=== PATIENT | female | born 1960 | race African-American/Black ===

== ENCOUNTER 2017-11-19 07:35 | Day surgery (SDC) | payer OTHER ==
[2017-11-18 10:26] VITALS: BMI 34.3
[2017-11-19] MEDS ORDERED: BUPIVACAINE HCL/PF 0.5% (5MG/ML) 10 ML VIAL ONE (10:41)
[2017-11-19] MEDS ORDERED: INDOCYANINE GREEN 25 MG/10 ML VIAL IVPUSH ONE (10:41)
--- NOTE | 2017-11-19 11:05 | HP ---
Satellite [facility] [place] - Chief Complaint Chief Complaint: Recurrent epigastric pain. + Gallstones History Source: Patient Limitations to Obtaining History: No Limitations - Past Medical History Allergies/Adverse Reactions: Allergies Allergy/AdvReac Type Severity Reaction Status Date / Time No Known Drug Allergies Allergy Verified 11/19/17 08:37 - Current Medications Current Medications: Home Medications Medication Instructions Recorded Acetaminophen [Tylenol] 650 mg PO PRN 11/18/17 Cholecalciferol (Vitamin D3) 1,000 unit PO WEEKLY 11/18/17 [Vitamin D3] Olmesartan/Hydrochlorothiazide 1 each PO DAILY 11/18/17 [Benicar Hct 40-25 mg Tablet] Docusate Sodium [Colace -] 100 mg PO TID #90 capsule 11/19/17 Oxycodone HCl/Acetaminophen 1 - 2 tab PO Q6H #28 tab MDD 4 11/19/17 [Percocet 5-325 mg Tablet] Satellite Physical Exam - Physical Examination Vital Signs: Vital Signs Period Temp Pulse Resp BP Sys/Whitt Pulse Ox Last 24 Hr 98.5 F 56 16 111/67 99 General Appearance: Well Nourished Lung: Clear to auscultation Heart: Regular rate & rhythm Abdomen: Soft, No tenderness Neurological: Alert, Oriented Satellite Impression/Plan - Impression/Plan Impression: Biliary colic Operative Procedure: Robotic cholecystectomy possible open Date to be Performed: 11/19/17
[2017-11-19] MEDS ORDERED: MIDAZOLAM HCL 2 MG/2 ML SINGLE DOSE VIAL ONE (11:42)
[2017-11-19] MEDS ORDERED: ROCURONIUM BROMIDE 50 MG/5 ML VIAL ONE (11:51)
[2017-11-19] MEDS ORDERED: PROPOFOL 20 ML ONE (11:51)
[2017-11-19] MEDS ORDERED: ceFAZolin SODIUM 1 GM VIAL IVPB ONE (11:59)
[2017-11-19] MEDS ORDERED: DEXAMETHASONE SOD PHOSPHATE 4 MG/1 ML VIAL ONE (12:05)
[2017-11-19] MEDS ORDERED: LIDOCAINE HCL/PF 2% SDV 5ML VIAL ONE (12:05)
[2017-11-19] MEDS ORDERED: LIDOCAINE HCL 2% JELLY (5 ML/TUBE) ONE (12:05)
[2017-11-19] MEDS ORDERED: ceFAZolin SODIUM 1 GM VIAL ONE (12:05)
[2017-11-19] MEDS ORDERED: GLYCOPYRROLATE 0.2 MG/1 ML VIAL ONE (12:05)
[2017-11-19] MEDS ORDERED: BUPIVACAINE HCL/PF 0.5% (5MG/ML) 10 ML VIAL IJ ONE (13:09)
[2017-11-19] MEDS ORDERED: NEOSTIGMINE METHYLSULFATE 0.5 MG/ML - 10 ML MDV ONE (13:10)
--- NOTE | 2017-11-19 13:19 | OP ---
Operative Note - Note: Operative Date: 11/19/17 Pre-Operative Diagnosis: Biliary colic Operation: Robotic cholecystectectomy Post-Operative Diagnosis: Same as Pre-op Surgeon: Obinna James Vest Backer: Erin Rhodes Anesthesia: General Specimens Removed: Gallbladder Estimated Blood Loss (mls): 10 Operative Report Dictated: Yes
[2017-11-19] MEDS ORDERED: ONDANSETRON 4 MG/2 ML VIAL IVPUSH PRN ×2 (13:20→13:46)
[2017-11-19] MEDS ORDERED: ACETAMINOPHEN 325 MG TABLET (FP) PO PRN (13:20)
[2017-11-19] MEDS ORDERED: D5-1/2NS+20 MEQ KCL - 20 MEQ/1,000 ML INFUS.BAG IV SCH (13:30)
[2017-11-19] MEDS ORDERED: ACETAMINOPHEN 325 MG TABLET (FP) PO SCH (13:30)
[2017-11-19] MEDS ORDERED: LACTATED RINGERS SOLUTION 1,000 ML IV SCH (14:00)
[2017-11-19 15:12] VITALS: TEMP 98.8
[2017-11-19 18:45] VITALS: BP 120/66; PULSE 68
--- NOTE | 2017-11-20 07:44 | SURG ---
Surgery Grain Trader Note Grain Trader: Erin Rhodes PA-C Date of Service: 11/20/17 Diagnosis: Biliary colic Procedure: Robotic cholecystectectomy I was present for the entirety of the operative procedure. For further detail, please refer to operative report. Visit type - Case Type Case Type: Scheduled Admission - Emergency Emergency Visit: No - New patient This patient is new to me today: Yes Date on this admission: 11/20/17
[2017-11-20] MEDS ORDERED: VALSARTAN 160 MG TABLET (UD) PO SCH (10:00)
[2017-11-20] MEDS ORDERED: HYDROCHLOROTHIAZIDE 25 MG TABLET (FP) PO SCH (10:00)
[2017-11-20] MEDS ORDERED: PATIENT'S OWN MEDICATION (NON-FORMULARY) (Olmesartan/Hydrochlorothiazide [Benicar Hct 40-2 PO SCH (10:00)
--- NOTE | 2017-11-22 09:19 | PATH ---
Surgical Pathology Report Patient Name: SHORTY MCKOY [facility]. Rec. #: [id number] /Age/Gender: 1960 (Age: 57) / F Account: [id number] Location: U SURGICAL Taken: 11/20/2017 Received: 11/20/2017 Reported: 11/22/2017 Physicians: Obinna James M.D. Specimen(s) Received GALLBLADDER Clinical History Cholelithiasis Final Diagnosis GALLBLADDER, CHOLECYSTECTOMY: CHRONIC CHOLECYSTITIS AND CHOLELITHIASIS. BENIGN REACTIVE PERICYSTIC LYMPH NODE PRESENT. Electronically Signed Madhav Urena M.D. Gross Description Received in formalin labelled "gallbladder" is a 5.2 x 2.6 x 2.5 cm gallbladder with an attached 2 cm long portion of cystic duct. There has a singh and purple and focally green bile-stained serosa, and up to 0.3 cm thick wall, and a velvety focal yellow stain mucosa that is flattened in places. Within the lumen of the gallbladder is a 3.6 cm in greatest dimension ovoid calculus. A possible pericystic lymph node is present. 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 [facility]/11/20/2017 [facility]/11/20/2017
== END 2017-11-19 18:05 | disposition home or self-care (01) ==
LOC: JASU-SURG 07:35
PROVIDERS: ATTEND Surgery
PROC: 8E0W4CZ Robotic Assisted Procedure of Trunk Region, Percutaneous Endoscopic Approach (ICD-10-PCS; 2017-11-19)
PROC: 0FT44ZZ Resection of Gallbladder, Percutaneous Endoscopic Approach (ICD-10-PCS; principal; 2017-11-19 10:00)
DX: K80.50 Calculus of bile duct without cholangitis or cholecystitis without obstruction (principal)
CPT/HCPCS: 47562; S2900; 88304-TC; 94760

== ENCOUNTER 2019-09-24 20:58 | Emergency (ER) | payer OTHER ==
[2019-09-24] MEDS ORDERED: ONDANSETRON *ODT* 4 MG TABLET SL ONE (21:07)
--- NOTE | 2019-09-24 21:07 | PDOC ---
Rapid Medical Evaluation Time Seen by Provider: 09/24/19 21:03 Medical Evaluation: Allergies Allergy/AdvReac Type Severity Reaction Status Date / Time No Known Drug Allergies Allergy Verified 09/24/19 21:03 09/24/19 21:03 CC: Feeling nauseated Pt is a 59 y/o female who presents to the ED with complaint of feeling nauseated on and off all day today. She denies any other symptoms. She admits to a L ankle lump that she noticed today. No pain over the lump. No warmth or erythema. Brief exam: L lateral ankle with soft, fleshy lesion appreciated. No erythema or warmth to touch. No crepitus. No abdominal tenderness to palpation. Orders: zofran To ED for further evaluation Discharge Disposition - Diagnosis Nausea - Referrals - Patient Instructions - Post Discharge Activity
[2019-09-24 21:11] VITALS: PULSE 84; TEMP 98.5; BMI 38.6
[2019-09-24] MEDS ORDERED: ONDANSETRON *ODT* 4 MG TABLET ONE (22:14)
[2019-09-24] MEDS ORDERED: SODIUM CHLORIDE 1,000 ML IV STA (22:31)
--- NOTE | 2019-09-24 23:16 | PDOC ---
History of Present Illness - General Chief Complaint: Edema Stated Complaint: NAUSEA Time Seen by Provider: 09/24/19 21:03 History Source: Patient Exam Limitations: No Limitations - History of Present Illness Initial Comments: 09/24/19 23:10 HISTORY OF PRESENT ILLNESS: 59-year-old woman with past medical history of hypertension hyperlipidemia presents emergency department for evaluation of nausea, dizziness and an uneasy feeling in her chest over the past day. Patient states when she woke up this morning she was feeling "off." Upon waking up today, she reported feeling like she was in a fog and had difficult time concentrating. Patient reports the dizziness was a room spinning sensation but was unable to identify any aggravating or alleviating factors. She felt nauseous throughout the day but has not vomited. Patient also with left lateral lower leg swelling for which she denies trauma. She denies any pain at this time. No recent travel or sick contacts. PAST MEDICAL HISTORY: see HPI SURGICAL HISTORY: Denies ALLERGIES: No known drug allergies REVIEW OF SYSTEMS General/Constitutional: Denies fever or chills. Denies weakness, weight change. HEENT: Denies change in vision. Denies ear pain or discharge. Denies sore throat. Cardiovascular: Denies chest pain or shortness of breath. Respiratory: Denies cough, wheezing, or hemoptysis. Gastrointestinal: See HPI Genitourinary: Denies dysuria, frequency, or change in urination. Musculoskeletal: Denies joint or muscle swelling or pain. Denies neck or back pain. Skin and breasts: Denies rash or easy bruising. Neurologic: See HPI Psychiatric: Denies depression or anxiety. Endocrine: Denies increased thirst. Denies abnormal weight change. Hematologic/Lymphatic: Denies anemia, easy bleeding, or history of blood clots. Allergic/Immunologic: Denies hives or skin allergy. Denies latex allergy. PHYSICAL EXAM General Appearance: Well-appearing, appropriately dressed. No apparent distress , no intoxication. HEENT: EOMI, PERRLA, normal ENT inspection, normal voice, TMs normal, pharynx normal. No conjunctival pallor. No photophobia, scleral icterus. Neck: Supple. Trachea midline. No tenderness, rigidity, carotid bruit, stridor , lymphadenopathy, or thyromegaly. Respiratory/Chest: Lungs CTAB. No shortness of breath, chest tenderness, respiratory distress, accessory muscle use. No crackles, rales, rhonchi, stridor , wheezing, dullness Cardiovascular: RRR. S1, S2. No JVD, murmur, bradycardia, tachycardia. Vascular Pulses: Dorsalis-Pedis (R): 2+, Dorsalis-Pedis (L): 2+ Gastrointestinal/Abdominal: Normal bowel sounds. Abdomen soft, non-distended. No tenderness or rebound tenderness. No organomegaly, pulsatile mass, guarding, hernia, hepatomegaly, splenomegaly. Lymphatic: No adenopathy, tenderness. Musculoskeletal/Extremities: Normal inspection. FROM of all extremities, normal capillary refill. Pelvis Stable. No CVA tenderness. No tenderness to extremities, pedal edema, swelling, erythema or deformity. Atraumatic soft fleshy swelling present to the left lateral lower leg. No erythema or fluctuance present. No tenderness. Integumentary: Appropriate color, dry, warm. No cyanosis, erythema, jaundice or rash Neurologic: call center operator II-XII intact. Fully oriented, alert. Appropriate mood/affect. Motor strength 5/5. No appreciable EOM palsy, facial droop or sensory deficit. No nystagmus present. Past History - Past Medical History Allergies/Adverse Reactions: Allergies Allergy/AdvReac Type Severity Reaction Status Date / Time No Known Drug Allergies Allergy Verified 09/24/19 21:03 Home Medications: Ambulatory Orders Acetaminophen [Tylenol] 650 mg PO PRN 11/18/17 Cholecalciferol (Vitamin D3) [Vitamin D3] 1,000 unit PO WEEKLY 11/18/17 Olmesartan/Hydrochlorothiazide [Benicar Hct 40-25 mg Tablet] 1 each PO DAILY Docusate Sodium [Colace -] 100 mg PO TID #90 capsule 11/19/17 Oxycodone HCl/Acetaminophen [Percocet 5-325 mg Tablet] 1 - 2 tab PO Q6H #28 tab MDD 4 11/19/17 Anemia: No Asthma: No Cancer: No Cardiac Disorders: No CVA: No COPD: No CHF: No Dementia: No Diabetes: No GI Disorders: No Disorders: No HTN: Yes Hypercholesterolemia: Yes Liver Disease: No Seizures: No Thyroid Disease: No - Surgical History Abdominal Surgery: Yes Appendectomy: No Cardiac Surgery: No Cholecystectomy: No Lung Surgery: No Neurologic Surgery: No Orthopedic Surgery: No - Psycho Social/Smoking Cessation Hx Smoking History: Never smoked Hx Alcohol Use: No Drug/Substance Use Hx: No Substance Use Type: None Hx Substance Use Treatment: No *Physical Exam - Vital Signs Last Vital Signs Temp Pulse Resp BP Pulse Ox 98.5 F 84 16 159/73 97 09/24/19 21:03 09/24/19 21:03 09/24/19 21:03 09/24/19 21:03 09/24/19 21:03 Heart Score/ECG Review - History History: Slightly suspicious - Electrocardiogram EKG: Normal - Age Age: 45-65 - Risk Factors Risk Factors Heart Score: Yes Hx Hypercholesterolemia, Yes Hx Hypertension Based on the list above the patient has:: 1-2 risk factors - Troponin Troponin: </= normal limit - Score Heart Score - Total: 2 ED Treatment Course - LABORATORY CBC & Chemistry Diagram: 09/24/19 23:15 09/24/19 23:15 - RADIOLOGY Radiology Studies Ordered: Category Date Time Status CHEST PA & LAT [RAD] Stat Radiology 09/24/19 22:31 Ordered - Medications Given in the ED: ED Medications Discontinued Medications Generic Name Dose Route Start Last Admin Trade Name Freq PRN Reason Stop Dose Admin Ondansetron HCl 4 mg 09/24/19 21:07 09/24/19 22:19 Zofran Odt - SL 09/24/19 21:08 4 mg ONCE ONE Administration Medical Decision Making - Medical Decision Making 09/24/19 23:14 A/P: 59-year-old woman with nausea and dizziness throughout the day today Negative Isaias-Hallpike No nystagmus present Neurologic exam is within normal limits Differential diagnosis includes but is not limited to-OH, influenza, pneumonia, pulmonary infarct, occult infection, pancreatitis, PE Less likely pancreatitis as patient is pain-free. Patient denies any cough less likely pneumonia. PERC score of 0. Labs including Lipase and cardiac profile EKG Normal saline Zofran Reassess 09/25/19 00:31 Laboratory Tests 09/24/19 09/24/19 09/24/19 23:15 23:15 23:15 WBC 6.2 RBC 4.77 Hgb 13.6 Hct 41.4 MCV 86.8 MCH 28.5 MCHC 32.8 RDW 14.2 Plt Count 247 MPV 8.8 Absolute Neuts (auto) 3.4 Neutrophils % 56.0 Lymphocytes % 31.0 Monocytes % 10.0 Eosinophils % 1.4 Basophils % 1.6 Nucleated RBC % 0 Platelet Estimate Adequate Platelet Comment Rare giant plts PT with INR INR PTT (Actin FS) Sodium 142 Potassium 4.2 Chloride 109 H Carbon Dioxide 25 Anion Gap 8 BUN 19.7 H Creatinine 1.1 Est GFR (CKD-EPI)AfAm 64.54 Est GFR (CKD-EPI)NonAf 55.69 Random Glucose 101 Calcium 9.7 Magnesium Total Bilirubin 0.5 AST 50 H ALT 67 H Alkaline Phosphatase 80 Creatine Kinase 152 Creatine Kinase Index 1.0 CK-MB (CK-2) 1.6 Troponin I < 0.02 Total Protein 7.4 Albumin 3.8 Lipase Influenza A (Rapid) Negative Influenza B (Rapid) Negative 09/24/19 09/24/19 23:15 23:15 WBC RBC Hgb Hct MCV MCH MCHC RDW Plt Count MPV Absolute Neuts (auto) Neutrophils % Lymphocytes % Monocytes % Eosinophils % Basophils % Nucleated RBC % Platelet Estimate Platelet Comment PT with INR 11.60 INR 0.98 PTT (Actin FS) 51.2 H Sodium Potassium Chloride Carbon Dioxide Anion Gap BUN Creatinine Est GFR (CKD-EPI)AfAm Est GFR (CKD-EPI)NonAf Random Glucose Calcium Magnesium 2.1 Total Bilirubin AST ALT Alkaline Phosphatase Creatine Kinase Creatine Kinase Index CK-MB (CK-2) Troponin I Total Protein Albumin Lipase 190 Influenza A (Rapid) Influenza B (Rapid) 09/25/19 00:39 Chest x-ray as read by me: Angle sharp. Cardiac silhouette is within normal limits. No infiltrates or consolidations noted. Lung richardson are clear. Influenza testing is negative Mild elevation of AST and ALT not clinically significant. Lipase mildly elevated 190. Not clinically significant P.o. trial Reassess 09/25/19 01:17 Patient is able to tolerate p.o.'s without difficulty. EKG sinus rhythm with rate of 80. Normal intervals present with QTC 435 ms. Normal axis. T wave flattening present in V3. As patient is no longer experiencing any nausea and is able to tolerate p.o.'s I feel it is safe to discharge the patient home to follow-up with a primary doctor to previously scheduled appointment next week. I discussed the physical exam findings, ancillary test results and final diagnoses with the patient. I answered all of the patient's questions. The patient was satisfied with the care received and felt comfortable with the discharge plan and treatment plan. The patient will call their primary care physician within 24 hours to arrange follow-up and will return to the Emergency Department with any new, persistent or worsening symptoms. Discharge - Discharge Information Problems reviewed: Yes Clinical Impression/Diagnosis: Nausea Condition: Stable Disposition: HOME - Admission No - Follow up/Referral Referrals: Ankita Goetz MD [Primary Care Provider] - - Patient Discharge Instructions Additional Instructions: Rest, drink lots of fluids: Teas, water, soups Fiona richard, carbonated beverages for the bubbles May try peppermint teas Avoid heavy , spicy or fatty foods until symptoms have resolved Avoid contact with others until fevers and symptoms resolved Lots of handwashing and good hygiene Tylenol or Motrin for fever and pain May use Zofran-one tablet as needed for nausea. May repeat times one every 8 hours Followup with private physician in one to 2 days as needed Return to emergency department for worsened symptoms, fevers, dehydration - Post Discharge Activity Work/Back to School Note: Back to Work
[2019-09-24 23:26] LABS: BASO % 1.6 % (0-2.0); EOS % 1.4 % (0-4.5); HEMATOCRIT 41.4 % (32.4-45.2); HEMOGLOBIN 13.6 GM/dL (10.7-15.3); MCH 28.5 pg (25.7-33.7); MCHC 32.8 g/dl (32.0-36.0); MEAN CELL VOLUME 86.8 fl (80-96); MEAN PLT VOLUME 8.8 fl (7.5-11.1); RBC 4.77 M/mm3 (3.60-5.2); RDW 14.2 % (11.6-15.6); WHITE BLOOD COUNT 6.2 K/mm3 (4.0-10.0)
[2019-09-24 23:41] LABS: INR 0.98 (0.83-1.09); PROTHROMBIN TIME (PATIENT) 11.6 SEC (9.7-13.0)
[2019-09-24 23:43] LABS: ACTIVATED PTT 51.2 SECONDS (25.2-36.5)
[2019-09-24 23:50] LABS: PLATELET COUNT 247 K/MM3 (134-434)
[2019-09-24 23:51] LABS: PLATELET ESTIMATE ADEQUATE
[2019-09-24 23:54] LABS: MAGNESIUM 2.1 mg/dL (1.8-2.4)
[2019-09-24 23:57] LABS: ALBUMIN 3.8 g/dl (3.4-5.0); ALK PHOS 80 U/L (45-117); ANION GAP 8 MMOL/L (8-16); BILIRUBIN,TOTAL 0.5 mg/dL (0.2-1); BLOOD UREA NITROGEN 19.7 mg/dL (7-18); CALCIUM 9.7 mg/dL (8.5-10.1); CHLORIDE 109 mmol/L (98-107); CO2 25 mmol/L (21-32); CREATININE 1.1 mg/dL (0.55-1.3); GLUCOSE,RANDOM 101 mg/dL (74-106); POTASSIUM 4.2 mmol/L (3.5-5.1); SGOT/AST 50 U/L (15-37); SGPT/ALT 67 U/L (13-61); SODIUM 142 mmol/L (136-145); TOT PROT 7.4 g/dl (6.4-8.2)
[2019-09-25 01:32] VITALS: BP 148/76
--- NOTE | 2019-09-25 15:05 | EKG ---
Test Reason : Blood Pressure : / mmHG Vent. Rate : 080 BPM Atrial Rate : 080 BPM P-R Int : 144 ms QRS Dur : 072 ms QT Int : 378 ms P-R-T Axes : 066 046 012 degrees QTc Int : 435 ms SINUS RHYTHM WITH MARKED SINUS ARRHYTHMIA NONSPECIFIC T WAVE ABNORMALITY ABNORMAL ECG WHEN COMPARED WITH ECG OF 21-NOV-1999 08:30, NONSPECIFIC T WAVE ABNORMALITY NOW EVIDENT IN ANTEROLATERAL LEADS Confirmed by STORM HOPSON MD ([id number]) on 09/25/2019 3:04:38 PM Referred By: Confirmed By:TSORM HOPSON MD
== END 2019-09-25 01:30 | disposition home or self-care (01) ==
LOC: JER 20:58
PROC: 3E0337Z Introduction of Electrolytic and Water Balance Substance into Peripheral Vein, Percutaneous Approach (ICD-10-PCS; principal; 2019-09-24)
DX: R11.0 Nausea (principal); I10 Essential (primary) hypertension; E78.5 Hyperlipidemia, unspecified; E78.00 Pure hypercholesterolemia, unspecified
CPT/HCPCS: 36415; 71046-TC-FY; 80053; 82550; 82553; 83690; 83735; 84484; 85025; 85610; 85730; 87804; 93005; 93010; 99283-25; J7030; Q0162